=== PATIENT | female | born 1945 | race Caucasian/White ===

== ENCOUNTER 2017-09-01 15:29 | Observation (INO) | payer MEDICARE ==
[2017-09-01 16:08] LABS: Urine Appearance Clear; Urine Blood Negative (Negative); Urine Color Straw; Urine Ketones Negative (Negative); Urine Protein Negative (Negative); Urine Specific Gravity 1.006 (1.010-1.030); Urine Urobilinogen Negative (Negative)
[2017-09-01 16:12] LABS: ABS Basophils 0.1 10^3/ul (0-0.2); ABS Eosinophils 0.2 10^3/ul (0-0.6); ABS Lymphocytes 2.3 10^3/ul (1.0-4.8); ABS Monocytes 0.5 10^3/ul (0-0.8); ABS Neutrophils 4.8 10^3/ul (1.5-7.7); ABS Nucleated RBC 0 10^3/ul; Eosinophil % 2.9 % (0-6); Hematocrit 40 % (35-47); Hemoglobin 13.5 g/dl (12.0-16.0); Lymphocyte % 29.4 % (25-47); Mean Corpuscular HGB Conc 34 g/dl (31-36); Mean Corpuscular Hemoglobin 31 pg (27-31); Mean Corpuscular Volume 90 fL (80-97); Mean Platelet Volume 9.1 um3 (7.4-10.4); Nucleated Red Blood Cells % 0.1; Platelet Count 276 10^3/ul (150-450); Red Cell Distribution Width 13 % (10.5-15); White Blood Count 7.8 10^3/ul (3.5-10.8)
--- NOTE | 2017-09-01 16:21 | RAD ---
Indication: Chest pain. Single frontal view of the chest performed at 1609 hours was reviewed. Comparison is made with previous exam dated May 24, 2012. No mediastinal shift is noted. Heart is of normal size and configuration. Lung gold appear clear. No evidence of alveolar consolidation is noted. IMPRESSION: NO ACTIVE CARDIOPULMONARY DISEASE IS NOTED.
[2017-09-01 16:26] LABS: EGFR Non-African American 82.3 (>60)
[2017-09-01 16:31] LABS: INR 0.92 (0.77-1.02)
[2017-09-01] MEDS ORDERED: NS 0.9% 1000 ML* 1,000 ML IV SCH (19:00)
[2017-09-01] MEDS: Heparin VIAL(*) 5000 UNITS/ML VIAL (FIVE THOUSAND) SUBCUT SCH (21:46)
--- NOTE | 2017-09-02 02:29 | ED ---
Courtney Brewer Rebecca, scribed for Carolina Mac MD on 09/01/17 at 1554 . Palpitations / Dysrhythmia - HPI Summary HPI Summary: Pt is a 72 y/o F BIBA from Dr. Dewey's office who presents to ED c/o palpitations characterized as fluttering and irregular. Reports she has been experiencing such episodes intermittent for multiple years, describing it as it "feels like my heart isn't beating consecutively." Reports that her palpitations are not currently present. Notes intermittent CP, described as "feeling funny" though not present currently. Given ASA at Dr. Dewey's office , [facility]. Was send [place] [facility] [place] due to new LBBB while at Dr. Dewey's office where she originally scheduled an appointment for concern of Lyme Disease/tick bites. Is not on blood thinners and her last EKG prior to today was in 2012. - History of Current Complaint Chief Complaint: EDChestPainROMI Time Seen by Provider: 09/01/17 15:34 Hx Obtained From: Patient, Other: - Dr. Dewey Onset/Duration: Lasting Weeks - Multiple years Timing: Intermittent Episodes Lasting: - minutes Severity Initially: Moderate Severity Currently: None Character: Irregular, Fluttering Aggravating: Nothing Alleviating: Nothing Associated Signs & Symptoms: Chest Pain - Intermittent, non presently - Allergy/Home Medications Allergies/Adverse Reactions: Allergies Allergy/AdvReac Type Severity Reaction Status Date / Time Sulfa (Sulfonamide Allergy Unknown Verified 09/01/17 15:35 Antibiotics) Reaction Details Home Medications: Home Medications Boswellia Juancho Extract 1 tab PO DAILY 09/01/17 [History Confirmed 09/01/17] Cholecalciferol (Vitamin D3) [Vitamin D3] 1,000 unit PO DAILY 09/01/17 [History Confirmed 09/01/17] DOXYcycline CAP(*) [DOXYcycline 100MG CAP(*)] 100 mg PO DAILY PRN 09/01/17 [ History Confirmed 09/01/17] PMH/Surg Hx/FS Hx/Imm Hx Previously Healthy: No Cardiovascular History: Reports: Other Cardiovascular Problems/Disorders - Hx travis valve prolapse History: Reports: Other Problems/Disorders - Hx proctitis Musculoskeletal History: Reports: Hx Rheumatoid Arthritis - Surgical History Surgery Procedure, Year, and Place: none Infectious Disease History: No Infectious Disease History: Denies: Traveled Outside the [place] in Last 30 Days - Family History Known Family History: Positive: Other - AAA (mother), leukemia (father) - Social History Occupation: Retired Lives: With Family Alcohol Use: None Substance Use Type: Reports: None Hx Tobacco Use: No Smoking Status (MU): Never Smoked Tobacco Review of Systems Negative: Fever Positive: Palpitations, Chest Pain - Intermittent, none presently Respiratory: Negative Gastrointestinal: Negative Skin: Negative Neurological: Negative Psychological: Normal All Other Systems Reviewed And Are Negative: Yes Physical Exam - Summary Physical Exam Summary: Appearance: Well-appearing, moderate pain distress, well-nourished, smiling and talking in full sentences Skin: Warm, color reflects adequate perfusion, dry, no rash Head: Normal Head/Face inspection, atraumatic Eyes: Conjunctiva clear ENT: Normal inspection Neck: Supple, no nodes, no JVD Respiratory: Lungs clear, normal breath sounds, no respiratory distress Cardio: RRR, No murmur, pulses normal, brisk capillary refill Abdomen: Soft, nontender Bowel sounds: Present Musculoskeletal: Strength Intact/ROM intact, no calf tenderness, no edema. Psychological: Normal Neuro: Alert, muscle tone normal, no focal deficit Triage Information Reviewed: Yes Vital Signs On Initial Exam: Initial Vitals Temp Pulse Resp BP Pulse Ox 98.2 F 61 18 165/63 99 09/01/17 15:34 09/01/17 15:34 09/01/17 15:34 09/01/17 15:34 09/01/17 15:34 Vital Signs Reviewed: Yes Diagnostics - Vital Signs Vital Signs Temp Pulse Resp BP Pulse Ox 09/01/17 15:34 98.2 F 61 18 165/63 99 - Laboratory Result Diagrams: 09/01/17 16:02 09/01/17 16:02 Lab Statement: Any lab studies that have been ordered have been reviewed, and results considered in the medical decision making process. - Radiology CXR Xray Interpretation: No Acute Changes - NO ACTIVE CARDIOPULMONARY DISEASE IS NOTED. ED physician reviewed this report. Radiology Interpretation Completed By: Radiologist - EKG 1540 Cardiac Rate: NL - 65 bpm EKG Rhythm: Sinus Rhythm ST Segment: Non-Specific - no STEMI criteria Ectopy: None EKG Interpretation: nl AVCT, prolonged IVCT in LBBB pattern, new since 2012, prolonged QTC(500) EKG Comparison: Other - 2013, new LBBB Re-Evaluation - Re-Evaluation First Eval Re-Evaluation Time: 17:57 Change: Unchanged Comment: Pain free and agrees to admission. Course/Dx - Course Course Of Treatment: Pt with intermittent CP and palpitations who was originally concerned about possible Lyme disease presented to Dr. Dewey's office and was found to have new LBBB since 2012. Pt was given ASA 324mg po in Dr. Dewey's office. I Paged Dr. Moralez at 1551, discussed that pt does not have Sgarbossa critera for IA in Left Bundle Branch Block. At 1737, nurse brings to attention, pt with increased ectopy, PVC noted and captured on monitor. Pt admitted for further evaluation and treatment. Discussed with pt and her daughter. Pt agrees to admission. Initial troponin is zero and pt is pain free in the ED. - Diagnoses Differential Diagnosis/HQI/PQRI: Positive: AV Block, Cardiomyopathy, Coronary Artery Disease, Mitral Valve Prolapse, Pericarditis, Other - Lyme disease Provider Diagnoses: Chest pain, New onset left bundle branch block (LBBB) - Physician Notifications Discussed Care Of Patient With: Jose Moralez Time Discussed With Above Provider: 15:53 Instructed by Provider To: Other - Paged at 1559. Based on sgarbossa criteria, the pt does not meet STEMI criteria. Admit Dr. Palm, hospitalist assistant corporate controller. Discharge - Sign-Out/Discharge Documenting (check all that apply): Discharge/Admit/Transfer - Admit - Discharge Plan Condition: Stable Disposition: ADMITTED TO [facility] - Billing Disposition and Condition Condition: STABLE Disposition: Admitted to [facility] The documentation as recorded by the Courtney laureano Rebecca accurately reflects the service I personally performed and the decisions made by me, Carolina Mac MD.
--- NOTE | 2017-09-02 03:32 | HP ---
CC: Dr. Liset Dewey * HISTORY AND PHYSICAL: DATE OF ADMISSION: 09/01/17 PRIMARY CARE PROVIDER: Dr. Liset Dewey. ATTENDING PHYSICIAN: Dr. Yenni Palm * (dictated by Chet Duff NP). CHIEF COMPLAINT: Palpitations and fatigue. HISTORY OF PRESENT ILLNESS: Ms. Collins is a 72-year-old female with past medical history significant for osteopenia, mitral valve prolapse, and proctitis , who initially presented to her primary care provider's office today for followup after having a few tick bites over the last few weeks. She had previously been prescribed doxycycline for prophylaxis, but had not taken any. At her primary care appointment, she reported that she had been heart fluttering , which she reports she has had intermittently for a few years. She also reports intermittent chest pain that she reports as a sharp pain on the left side of her chest. She denies any of this pain for the last few days. She states she often notices the heart fluttering when she is lying down or resting. She also more often notices of chest pain with rest and not with activity. She states that she works out daily at the gym during the winter and 1 to 2 times a week during the summer as she is working in her garden daily during the summer. She reports no episodes of chest pain during her exercise. She reports some dizziness today. She feels that it is due to decreased oral intake. She also reports feeling gassy and bloated. She states this is common occurrence for her and not out of her ordinary. She denies urinary symptoms. She reports chronic hand pain and hip pain that she states has not changed and she associates with her gardening. She denies any other joint pain. She denies fevers, chills, chest pain, cough. She reports shortness of breath if she was to run up a hill, but other than that no shortness of breath. She denies nausea , vomiting, diaphoresis, abdominal pain. While at her PCP's office, she had an EKG showing a new left bundle branch block. She had not had a previous EKG since 2012. Due to this finding, she was sent to the emergency room for further evaluation. While in the emergency room, the patient had 2 negative troponins. She had labs that were unremarkable. She had an EKG showing a left bundle branch block , sinus rhythm, and a PAC. She had a chest x-ray without acute findings. D- dimer less than 200. TSH 1.42. Hospitalists were asked to evaluate the patient for admission. PAST MEDICAL HISTORY: 1. Osteopenia. 2. Proctitis. 3. Mitral valve prolapse. PAST SURGICAL HISTORY: 1. Status post right inguinal hernia repair. 2. Status post ORIF of her left elbow. HOME MEDICATIONS: Include: 1. Vitamin D3 1000 units oral daily. 2. Doxycycline 100 mg daily as needed for tick exposure. 3. Boswellia jovana extract 1 oral daily. ALLERGIES: SULFA. FAMILY HISTORY: The patient's mother passed at age 76 from aortic abdominal aneurysm. Her father had a history of angina. Denies any family history of diabetes. Her father had a history of leukemia and she has several aunts and uncles with cancer diagnosis that she is unsure of the specifics. SOCIAL HISTORY: She denies tobacco, alcohol, or recreational drug use. Her , Dennis Collins and her daughter will be her surrogate decision maker in the event she is unable to make decisions for herself. REVIEW OF SYSTEMS: I performed an 11-point review of systems, all the pertinent positives and negatives are mentioned in the history of present illness. The remaining review of systems are negative. PHYSICAL EXAMINATION GENERAL APPEARANCE: The patient is very pleasant and appears to be in no acute distress. VITAL SIGNS: Temperature 98.2, heart rate 68, respiratory rate 13, O2 sat 99% on room air, blood pressure 112/56. HEENT: Normocephalic, atraumatic. Pupils are equal and reactive to light. Extraocular movements are intact. RESPIRATORY: There is no accessory muscle use. The lungs are clear to auscultation bilaterally. CARDIOVASCULAR: Regular rate and rhythm. S1, S2 present. There are no murmurs , rubs, or gallops heard. ABDOMEN: Soft, nontender, and nondistended. There are bowel sounds present x4. EXTREMITIES: There is no lower extremity edema. DP and PT pulses are 2+ and symmetric. MUSCULOSKELETAL: There is no clubbing or cyanosis noted. The patient exhibits good strength in all extremities. NEUROLOGICAL: The patient is alert and oriented x4. Cranial nerves II through XII are grossly intact. PSYCHOLOGICAL: The patient is calm and cooperative. SKIN: There are no rashes or abnormalities seen. DIAGNOSTIC STUDIES/LABORATORY DATA: Sodium 141, potassium 4.0, chloride 106, CO2 27, BUN 15, creatinine 0.70, glucose 96. White blood cell count 7.8, hemoglobin 15.5, hematocrit 48, platelet count 276. D-dimer less than 200. Troponin 0.00 and 0.00. TSH 1.42. EKG shows a sinus rhythm, rate of 62. There is a left bundle branch block and a PAC. When compared to previous EKG in our system from 10/19/09, the left bundle branch block is new. Chest x-ray from today. Radiologist's impression: No active cardiopulmonary disease is noted. IMPRESSION: Ms. Collins is a 72-year-old with past medical history significant for osteopenia, proctitis, and mitral valve prolapse, who presented the emergency room from her PCP's office with concern for a new left bundle branch block and intermittent chest pain. She will be admitted as observation for chest pain, rule out acute coronary syndrome. ASSESSMENT/PLAN: 1. Chest pain. Rule out acute coronary syndrome. The patient will be monitored on telemetry. We will check one more troponin at 9 p.m. tonight. Her initial 2 troponins are 0, a SHAHEEN score of 1. If she continues to have negative troponins, the plan will be to discharge her home with outpatient stress test next week. Check fasting lipids in the morning. She is not currently on a statin. 2. Dizziness. The patient is complaining of some mild dizziness and just give her some gentle hydration overnight. 3. Fluids, electrolytes, and nutrition. Heart-healthy diet. 4. Code status. Full code. 5. DVT prophylaxis. The patient is at moderate risk and will have subcu heparin. 6. Disposition. Observation. TIME SPENT: Time for this admission was approximately 50 minutes, greater than half of that was spent with the patient and her daughter discussing medications , past medical history, the events leading up to her arrival today, performing a physical examination. The case has been reviewed with the attending, Dr. Palm, who agrees with the plan of care. CHET DUFF, MISAEL [id number]/[facility] #: [id number] KYA
[2017-09-02] MEDS: Heparin VIAL(*) 5000 UNITS/ML VIAL (FIVE THOUSAND) SUBCUT SCH (05:26)
--- NOTE | 2017-09-02 09:13 | PN ---
Subjective Date of Service: 09/02/17 Interval History: Patient seen and examined at bedside. Denies fever, chills, shortness of breath , chest discomfort, N/V/D. Pt reports palpitations overnight, that have decreased during her stay. Pt also reports an episode of chest discomfort, that she describes as a sharp discomfort that quickly resolved. Pt is requesting to have Lyme serology checked while she is here. Tele: Sinus rhythm with LBBB, rate 60's. Family History: Unchanged from Admission Social History: Unchanged from Admission Past Medical History: Unchanged from Admission Objective Active Medications: Heparin Sodium (Porcine) (Heparin Vial(*)) 5,000 units SUBCUT Q8HR EZRA Sodium Chloride (Ns 0.9% 1000 Ml*) 1,000 mls @ 60 mls/hr IV .PER RATE EZRA Oxygen Devices in Use Now: None Appearance: NAD, sitting up on the side of the bed Ears/Nose/Mouth/Throat: Mucous Membranes Moist Respiratory: Symmetrical Chest Expansion and Respiratory Effort, Clear to Auscultation Cardiovascular: NL Sounds; No Murmurs; No JVD, RRR Abdominal: NL Sounds; No Tenderness; No Distention Extremities: No Edema Skin: No Rash or Ulcers Neurological: Alert and Oriented x 3, NL Muscle Strength and Tone Lines/Tubes/Other Access: Clean, Dry and Intact Peripheral IV - site benign Nutrition: Taking PO's Result Diagrams: 09/01/17 16:02 09/01/17 16:02 Assess/Plan/Problems-Billing Assessment: Ms. Collins is a 72 yo female with PMH significant for osteopenia, MV prolapse, and proctitis who presented to the emergencry room for chest discomfort and new LBBB. - Patient Problems (1) Chest pain Code(s): R07.9 - CHEST PAIN, UNSPECIFIED SNOMED Code(s): 41440548 Comment: - 1 breif episode overnight, resolved - Tropoinin negative - Plan for outpatient stress test (2) Left bundle branch block Code(s): I44.7 - LEFT BUNDLE-BRANCH BLOCK, UNSPECIFIED SNOMED Code(s): 62283999 Comment: - New in the last 5 years - Negative troponins - Plan for outpatient stress test (3) Dizziness Code(s): R42 - DIZZINESS AND GIDDINESS SNOMED Code(s): 528652945 Comment: - Resolved with IVFs overnight (4) DVT prophylaxis Code(s): WUK3138 - SNOMED Code(s): 212192750 (5) Full code status Code(s): Z78.9 - OTHER SPECIFIED HEALTH STATUS SNOMED Code(s): 931510548 Status and Disposition: OBV. Stable for discharge to home today.
[2017-09-02 11:40] VITALS: BP 133/64
--- NOTE | 2017-09-02 17:50 | DS ---
CC: Liset Dewey MD * DISCHARGE SUMMARY: DATE OF ADMISSION: 09/01/17 DATE OF DISCHARGE: 09/02/17 ATTENDING PHYSICIAN: Minh Meadows MD * (dictated by Chet Duff NP). PRIMARY CARE PROVIDER: Liset Dewey MD PRIMARY DIAGNOSES: 1. Chest pain. 2. Palpitations. 3. New left bundle-branch block. SECONDARY DIAGNOSES: 1. Osteopenia. 2. Proctitis. 3. Mitral valve prolapse. STUDIES WHILE IN THE HOSPITAL: Chest x-ray from 09/01/17. Radiologist's impression: No active cardiopulmonary disease is noted. DISCHARGE MEDICATIONS: Continued home medications: 1. Vitamin D3 of 1000 units oral daily. 2. Doxycycline 100 mg oral daily as needed for tick exposure. 3. Boswellia jovana extract 1 oral daily. HISTORY OF PRESENT ILLNESS/HOSPITAL COURSE: Ms. Collins is a 72-year-old female with past medical history significant for osteopenia, mitral valve prolapse, and proctitis, who initially presented to her primary care provider's office yesterday for followup of a few tick bites and interested in Lyme testing. The patient had been previously prescribed prophylaxis doxycycline, but had not taken any. At her primary care office, she reported having palpitations and intermittent left-sided sharp chest discomfort. Due to these complaints, the patient had an EKG showing a new left bundle-branch block. According to her PCP 's office records, this is new since 2012. Due to these findings, the patient was sent to the emergency room for further evaluation. While in the emergency room, the patient had 2 negative troponins. Her other labs were unremarkable. She had an EKG showing a left bundle-branch block and PACs. She had a chest x-ray without acute findings. D-dimer less than 200. TSH of 1.42. The hospitalists were asked to evaluate the patient for admission. While in the hospital, the patient had a third troponin that was negative. She had fasting lipids that were within normal limits. She reported 1 minor episode of chest discomfort overnight that spontaneously resolved. She continued to intermittently have some palpitations. On telemetry, she had PACs. She had a repeat EKG this morning showing continued left bundle-branch block, no acute changes from yesterday's EKG. Ms. Collins is stable for discharge home today. Ms. Collins is stable for discharge. Vitals signs are as follows: Temperature 98.8, heart rate 58, respiratory rate 20, O2 sat 100% on room air, blood pressure 133/64. DISCHARGE PLAN: Ms. Collins will be discharged to home. Activity as tolerated. She should be on a heart-healthy diet. In regards to her chest pain, I suspect this is noncardiac in nature at this time, as she is able to work out at the gym without any issues and additionally has negative troponins. It is unclear how old her left bundle-branch block is, it could be up to 5 years old. The patient has been set up for an outpatient nuclear exercise stress test. She will receive a call from the [facility] on Monday or Monday to set her up with an outpatient nuclear exercise stress test. The patient has been asked to call Dr. Dewey's office on Monday morning to set up a followup appointment next week. Additionally, I have added Lyme serology to the patient' s labs and this should be followed up at her followup appointment once the results are back. The patient has been continued on her usual home medications. The patient has been asked to return to the emergency room for any chest pain or shortness of breath. This is a summarized report of a complex medical history and hospital stay. For further details, please see the entire medical record. TIME SPENT: Time for this discharge was approximately 50 minutes, greater than half of that was spent with the patient discussing discharge plans and instructions. CONDITION ON DISCHARGE: Stable. CHET DUFF, MISAEL [id number]/[facility] #: [id number] KYA
== END 2017-09-02 11:25 | disposition home or self-care (01) ==
LOC: ED 15:29 → MEDTELE 18:13
PROVIDERS: ADMIT Hospitalist; ATTEND Student in an Organized Health Care Education/Training Program
DX: R07.9 Chest pain, unspecified (principal); R00.2 Palpitations; I44.7 Left bundle-branch block, unspecified; M85.80 Other specified disorders of bone density and structure, unspecified site; K62.89 Other specified diseases of anus and rectum; I34.1 Nonrheumatic mitral (valve) prolapse; Z82.49 Family history of ischemic heart disease and other diseases of the circulatory system; Z79.899 Other long term (current) drug therapy; Z88.2 Allergy status to sulfonamides
CPT/HCPCS: 36415; 71045; 80053; 80061; 81003; 81015; 82550; 82553; 83605; 83735; 83880; 84436; 84443; 84484; 85025; 85379; 85610; 85730; 86618; 87086; 93005; 99284; G0378

== ENCOUNTER 2017-09-05 10:12 | Emergency (ER) | payer MEDICARE ==
[2017-09-05 11:15] LABS: ABS Basophils 0.1 10^3/ul (0-0.2); ABS Eosinophils 0.1 10^3/ul (0-0.6); ABS Lymphocytes 1.5 10^3/ul (1.0-4.8); ABS Monocytes 0.3 10^3/ul (0-0.8); ABS Neutrophils 3.7 10^3/ul (1.5-7.7); ABS Nucleated RBC 0 10^3/ul; Eosinophil % 2.1 % (0-6); Hematocrit 40 % (35-47); Hemoglobin 13.5 g/dl (12.0-16.0); Mean Corpuscular HGB Conc 34 g/dl (31-36); Mean Corpuscular Hemoglobin 31 pg (27-31); Mean Corpuscular Volume 90 fL (80-97); Nucleated Red Blood Cells % 0.1; Platelet Count 285 10^3/ul (150-450); Red Blood Count 4.43 10^6/ul (4.00-5.40); Red Cell Distribution Width 13 % (10.5-15); White Blood Count 5.7 10^3/ul (3.5-10.8)
[2017-09-05 11:33] LABS: EGFR Non-African American 91.2 (>60)
[2017-09-05 15:33] VITALS: BP 156/68
--- NOTE | 2017-09-05 21:22 | CONS ---
CC: Dr. Dewey* CONSULTATION REPORT: DATE OF CONSULT: 09/05/17 PRIMARY CARE PROVIDER: Liset Dewey MD SERVICE REQUESTING CONSULTATION: Emergency Room. REASON FOR CONSULT: Shortness of breath. HISTORY OF PRESENT ILLNESS AND HOSPITAL COURSE: This is a 72-year-old female, recent admission to [facility] from 09/01/17 to 09/02/17 after presenting with shortness of breath as well as palpitations and fatigue. She was cared for by [employer], Dilan. She was noted with a new left bundle-branch block at that time. The patient had described palpitations, intermittent left-sided sharp chest pain. She is ruled out with 2 negative troponins at that time and was planned to have an outpatient stress test. Discharge records indicated that the patient should have been contacted yesterday or today for time for the stress test, which was not. She re-presented to the emergency room complaining of persistent shortness of breath, but no chest pain. She indicates that sometimes she forgets that she got short of breath and runs upstairs and after that, she experiences shortness of breath, but she has experienced no chest heaviness or discomfort particularly with running upstairs. She has noticed no detriment to her ability to exercise or perform the activities of daily living. She is concerned about what may be causing this change in her shortness of breath. I contacted the [facility] and there had been some breakdown in transfer of order and/or paperwork, which they had not received. We rectified this and I placed another order both electronically and faxed paper version in order to arrange the planned stress test within 72 hours. The patient notes no other changes at the time of discharge other than persistent shortness of breath which she was discharged with 3 days prior. She is comfortable with this plan and understands to return to the emergency room should her shortness of breath worsen or should she have any other associated symptoms including chest heaviness, pressure, pain or discomfort, nausea, vomiting, lightheadedness, or loss of consciousness. Additionally, she has not noted any palpitations. PAST MEDICAL HISTORY: As indicated above. Also includes osteopenia, proctitis , mitral valve prolapse, right inguinal hernia repair, ORIF of her left elbow. HOME MEDICATIONS: Include: 1. Vitamin D. 2. Boswellia jovana extract. ALLERGIES: To SULFA. FAMILY HISTORY: Mother with AAA. Father with history of angina. SOCIAL HISTORY: No tobacco, alcohol, or illicits. REVIEW OF SYSTEMS: As per HPI. PHYSICAL EXAM: Vital Signs: 130/70, heart rate is 61, respiratory rate is 18, 98% on room air, T-max is 99 Fahrenheit. Appears stated age, interactive, pleasant, no apparent distress. Regular rate and rhythm. Lungs are clear. Abdomen is soft, nontender, nondistended. Extremities are warm and well perfused. She is alert and oriented x3. Cranial nerves II through XII are intact. She has no apparent anxiety, agitation, or depression. DIAGNOSTIC STUDIES/LAB DATA: Labs reviewed. Notable for a troponin I of 0.00 and then 0.01. Data reviewed. EKG, sinus bradycardia, normal limit axis, prolonged QTc of 446 , incomplete left bundle-branch block, no notable ST elevations. ASSESSMENT AND PLAN: This is a 72-year-old female, recent admission with shortness of breath returning with persistent shortness of breath prior to her scheduled outpatient cardiac stress test. Shortness of breath, unclear etiology at this time. I agree that she should undergo a chemical stress with nuclear imaging for further evaluation of her persistent shortness of breath. She has had no chest pain. Two negative troponins and a nonischemic EKG even with vigorous exertion including running up a flight of stairs. I think she is stable to continue with original plan for outpatient stress test. We have coordinated with [facility] and faxed a new order as well as sent one electronically and she will have a stress test scheduled within the next 72 hours. I discussed at length returning to the emergency room for worsening symptoms including worsening shortness of breath or any chest discomfort to include pain, tightness, heaviness, or other worrisome symptoms that would include syncope or near syncope, lightheadedness, nausea, vomiting. The patient is in agreement with plan. TIME SPENT: Greater than 60 minutes spent in the consultation of this patient. Care discussed with Dr. Ruiz. [id number]/[facility] #: [id number] KYA
--- NOTE | 2017-09-06 12:04 | ED ---
Joaquín Brewer Angela, scribed for Alberto Ruiz MD on 09/05/17 at 1042 . Shortness of Breath - HPI Summary HPI Summary: This pt is a 72 y/o female [facility]o worsening SOB on exertion x4 days. Pt reports she was seen at [facility] 4 days ago for chest pain and an abnormal EKG showing LBBB. She was admitted for 1 day and discharged the next day. Pt notes that since 4 days ago she has had worsening SOB on exertion. Pt states when she walks up the stairs and reaches the top of the stairs she gets "breathless." This morning she notes she became dizzy. Pt also additionally reports a "twinge" in her chest, described as discomfort, now more often than before. Currently denies any dizziness or chest pain. Denies swelling or pain in LE. She did travel to [facility] by bus 2 weekends ago. Pt denies tobacco and alcohol use. Pt has not scheduled her stress test yet. FHx of mother with AAA, at age 76. - History of Current Complaint Chief Complaint: EDShortnessOfBreath Time Seen by Provider: 09/05/17 10:29 Hx Obtained From: Patient Onset/Duration: Lasting Days, Still Present Dyspnea At: Exertion Aggrevating Factors: Other - exertion Alleviating Factors: Nothing Associated Signs & Symptoms: Dizzy - Allergy/Home Medications Allergies/Adverse Reactions: Allergies Allergy/AdvReac Type Severity Reaction Status Date / Time Sulfa (Sulfonamide Allergy Unknown Verified 09/07/17 05:11 Antibiotics) Reaction Details PMH/Surg Hx/FS Hx/Imm Hx Endocrine/Hematology History: Denies: Hx Diabetes Cardiovascular History: Reports: Other Cardiovascular Problems/Disorders - Hx travis valve prolapse Denies: Hx Hypertension History: Reports: Other Problems/Disorders - Hx proctitis Musculoskeletal History: Reports: Hx Rheumatoid Arthritis Comment Only: Other Musculoskeletal History - osteopenia Sensory History: Reports: Hx Contacts or Glasses Denies: Hx Hearing Aid Opthamlomology History: Reports: Hx Contacts or Glasses - Surgical History Surgery Procedure, Year, and Place: none Infectious Disease History: No Infectious Disease History: Denies: Traveled Outside the [place] in Last 30 Days - Family History Known Family History: Positive: Hypertension - Mother, Other - AAA (mother), leukemia (father) Family History: Mother with fatal AAA at age 76. - Social History Alcohol Use: None Substance Use Type: Reports: None Hx Tobacco Use: No Smoking Status (MU): Never Smoked Tobacco Review of Systems Negative: Fever, Chills Negative: Erythema Negative: Sore Throat Negative: Chest Pain Positive: Shortness Of Breath - on exertion. Negative: Cough Negative: Abdominal Pain, Vomiting, Nausea Negative: dysuria, hematuria Negative: Myalgia, Edema Negative: Rash Neurological: Other - POS: dizziness, currently denies any All Other Systems Reviewed And Are Negative: Yes Physical Exam - Summary Physical Exam Summary: Constitutional: Well-developed, Well-nourished, Alert. (-) Distressed Skin: Warm, Dry HENT: Normocephalic; Atraumatic Eyes: Conjunctiva normal Neck: Musculoskeletal ROM normal neck. (-) JVD, (-) Stridor, (-) Tracheal deviation Cardio: Rhythm regular, rate normal, Heart sounds normal; Intact distal pulses; The pedal pulses are 2+ and symmetric. Radial pulses are 2+ and symmetric. (-) Murmur Pulmonary/Chest wall: Effort normal. (-) Respiratory distress, (-) Wheezes, (-) Rales Abd: Soft, (-) Tenderness, (-) Distension, (-) Guarding, (-) Rebound Musculoskeletal: (-) Edema Lymph: (-) Cervical adenopathy Neuro: Alert, Oriented x3 Psych: Mood and affect Normal Triage Information Reviewed: Yes Vital Signs On Initial Exam: Initial Vitals Temp Pulse Resp BP Pulse Ox 99 F 60 17 156/71 100 09/05/17 10:13 09/05/17 10:13 09/05/17 10:13 09/05/17 10:13 09/05/17 10:13 Vital Signs Reviewed: Yes Diagnostics - Vital Signs Vital Signs Temp Pulse Resp BP Pulse Ox 09/05/17 10:33 67 150/79 09/05/17 10:31 62 18 150/79 100 09/05/17 10:29 66 19 152/79 98 09/05/17 10:27 61 23 158/82 99 09/05/17 10:13 99 F 60 17 156/71 100 - Laboratory Lab Results: Lab Results 09/05/17 09/05/17 09/05/17 Range/Units 10:52 10:52 10:52 WBC 5.7 (3.5-10.8) 10^3/ul RBC 4.43 (4.00-5.40) 10^6/ul Hgb 13.5 (12.0-16.0) g/dl Hct 40 (35-47) % MCV 90 (80-97) fL MCH 31 (27-31) pg MCHC 34 (31-36) g/dl RDW 13 (10.5-15) % Plt Count 285 (150-450) 10^3/ul MPV 9.0 (7.4-10.4) um3 Neut % (Auto) 64.5 (38-83) % Lymph % (Auto) 27.0 (25-47) % Curry % (Auto) 5.5 (0-7) % Eos % (Auto) 2.1 (0-6) % Baso % (Auto) 0.9 (0-2) % Absolute Neuts (auto) 3.7 (1.5-7.7) 10^3/ul Absolute Lymphs (auto) 1.5 (1.0-4.8) 10^3/ul Absolute Monos (auto) 0.3 (0-0.8) 10^3/ul Absolute Eos (auto) 0.1 (0-0.6) 10^3/ul Absolute Basos (auto) 0.1 (0-0.2) 10^3/ul Absolute Nucleated RBC 0 10^3/ul Nucleated RBC % 0.1 D-Dimer, Quantitative (Less Than 230) ng/mL Sodium 139 (135-145) mmol/L Potassium 3.5 (3.5-5.0) mmol/L Chloride 105 (101-111) mmol/L Carbon Dioxide 26 (22-32) mmol/L Anion Gap 8 (2-11) mmol/L BUN 12 (6-24) mg/dL Creatinine 0.64 (0.51-0.95) mg/dL Est GFR ( Amer) 110.4 (>60) Est GFR (Non-Af Amer) 91.2 (>60) BUN/Creatinine Ratio 18.8 (8-20) Glucose 118 H (70-100) mg/dL Lactic Acid 1.2 (0.5-2.0) mmol/L Calcium 9.4 (8.6-10.3) mg/dL Total Bilirubin 0.90 (0.2-1.0) mg/dL AST 19 (13-39) U/L ALT 16 (7-52) U/L Alkaline Phosphatase 64 (34-104) U/L Troponin I 0.00 (<0.04) ng/mL Total Protein 6.4 (6.4-8.9) g/dL Albumin 4.2 (3.2-5.2) g/dL Globulin 2.2 (2-4) g/dL Albumin/Globulin Ratio 1.9 (1-3) 09/05/17 09/05/17 Range/Units 14:05 14:05 WBC (3.5-10.8) 10^3/ul RBC (4.00-5.40) 10^6/ul Hgb (12.0-16.0) g/dl Hct (35-47) % MCV (80-97) fL MCH (27-31) pg MCHC (31-36) g/dl RDW (10.5-15) % Plt Count (150-450) 10^3/ul MPV (7.4-10.4) um3 Neut % (Auto) (38-83) % Lymph % (Auto) (25-47) % Curry % (Auto) (0-7) % Eos % (Auto) (0-6) % Baso % (Auto) (0-2) % Absolute Neuts (auto) (1.5-7.7) 10^3/ul Absolute Lymphs (auto) (1.0-4.8) 10^3/ul Absolute Monos (auto) (0-0.8) 10^3/ul Absolute Eos (auto) (0-0.6) 10^3/ul Absolute Basos (auto) (0-0.2) 10^3/ul Absolute Nucleated RBC 10^3/ul Nucleated RBC % D-Dimer, Quantitative < 200 (Less Than 230) ng/mL Sodium (135-145) mmol/L Potassium (3.5-5.0) mmol/L Chloride (101-111) mmol/L Carbon Dioxide (22-32) mmol/L Anion Gap (2-11) mmol/L BUN (6-24) mg/dL Creatinine (0.51-0.95) mg/dL Est GFR ( Amer) (>60) Est GFR (Non-Af Amer) (>60) BUN/Creatinine Ratio (8-20) Glucose (70-100) mg/dL Lactic Acid (0.5-2.0) mmol/L Calcium (8.6-10.3) mg/dL Total Bilirubin (0.2-1.0) mg/dL AST (13-39) U/L ALT (7-52) U/L Alkaline Phosphatase (34-104) U/L Troponin I 0.01 (<0.04) ng/mL Total Protein (6.4-8.9) g/dL Albumin (3.2-5.2) g/dL Globulin (2-4) g/dL Albumin/Globulin Ratio (1-3) Result Diagrams: 09/05/17 10:52 09/05/17 10:52 Lab Statement: Any lab studies that have been ordered have been reviewed, and results considered in the medical decision making process. - EKG 10:20 Cardiac Rate: Bradycardia - at 55 bpm EKG Rhythm: Sinus Bradycardia Ectopy: PACs EKG Interpretation: No STEMI. Course/Dx - Course Assessment/Plan: Pt is a 72 y/o female who presents with worsening SOB on exertion x4 days. Pt reports she was seen at [facility] 4 days ago for chest pain and an abnormal EKG showing LBBB. She was admitted for 1 day and discharged the next day. Pt notes that since 4 days ago she has had worsening SOB on exertion. This morning she notes she became dizzy. Pt also additionally reports a "twinge " in her chest, described as discomfort, now more often than before. Currently denies any dizziness or chest pain. Denies swelling or pain in LE. Pt will not get a chest XR today as she had one 4 days ago. There are no features of aortic dissection, no active symptoms. Symptoms are progressive from last visit. Pt can benefit from an outpatient stress test. Hospitalist evaluated the pt and they report she does not need an inpatient stress test. [facility] is arranging the outpatient stress test. Pt will be discharged home with follow up from her PCP in 2-3 days. In statements to the patient made to the hospitalist, she actually was not having any chest discomfort, and that her breathing was at baseline. Her outpatient stress test was facilitated in the emergency department by the hospitalist service. Patient was strongly encouraged to return to the emergency department for any progression of symptoms , or new chest pain. - Diagnoses Provider Diagnoses: SOB (shortness of breath), Chest pain Discharge - Sign-Out/Discharge Documenting (check all that apply): Discharge/Admit/Transfer - Discharge - Discharge Plan Condition: Stable Disposition: HOME Patient Education Materials: Chest Pain (ED), Shortness of Breath (ED) Referrals: Liset Dewey MD [Primary Care Provider] - Additional Instructions: Follow up with your primary care provider in 2-3 days. RETURN TO THE EMERGENCY DEPARTMENT FOR CHANGING OR WORSENING SYMPTOMS. - Billing Disposition and Condition Condition: STABLE Disposition: Home The documentation as recorded by the Joaquín laureano Angela accurately reflects the service I personally performed and the decisions made by , Alberto Ruiz MD.
== END 2017-09-05 15:32 | disposition home or self-care (01) ==
LOC: ED 10:12
DX: R06.02 Shortness of breath (principal); R07.9 Chest pain, unspecified; I44.7 Left bundle-branch block, unspecified; R00.1 Bradycardia, unspecified; I34.1 Nonrheumatic mitral (valve) prolapse
CPT/HCPCS: 36415; 80053; 83605; 84484; 85025; 85379; 93005; 99283

== ENCOUNTER 2017-09-07 05:02 | Emergency (ER) | payer MEDICARE ==
[2017-09-07] MEDS ORDERED: Aspirin 81 mg CHEW TAB* 81 MG TAB.CHEW PO ONE (05:22)
[2017-09-07] MEDS ORDERED: Pantoprazole IV* 40 MG IV ONE (05:27)
[2017-09-07] MEDS ORDERED: Famotidine TAB* 20 MG PO ONE (05:27)
[2017-09-07] MEDS ORDERED: Al Hydrox/Mg Hydrox/Simet LIQ* 30 ML UDC PO ONE (05:27)
[2017-09-07 06:46] LABS: ABS Basophils 0.1 10^3/ul (0-0.2); ABS Eosinophils 0.1 10^3/ul (0-0.6); ABS Lymphocytes 1.8 10^3/ul (1.0-4.8); ABS Monocytes 0.3 10^3/ul (0-0.8); ABS Neutrophils 3.8 10^3/ul (1.5-7.7); ABS Nucleated RBC 0 10^3/ul; Eosinophil % 1.8 % (0-6); Hematocrit 39 % (35-47); Hemoglobin 13.5 g/dl (12.0-16.0); Lymphocyte % 28.9 % (25-47); Mean Corpuscular HGB Conc 34 g/dl (31-36); Mean Corpuscular Hemoglobin 31 pg (27-31); Mean Corpuscular Volume 89 fL (80-97); Nucleated Red Blood Cells % 0.1; Platelet Count 258 10^3/ul (150-450); Red Blood Count 4.39 10^6/ul (4.00-5.40); Red Cell Distribution Width 13 % (10.5-15); White Blood Count 6.1 10^3/ul (3.5-10.8)
[2017-09-07 07:02] LABS: INR 0.99 (0.77-1.02)
[2017-09-07 07:08] LABS: EGFR Non-African American 92.9 (>60)
--- NOTE | 2017-09-07 07:08 | ED ---
Edson Brewer Jade, scribed for Jere Luevano MD on 09/07/17 at 0553 . Shortness of Breath - HPI Summary HPI Summary: Pt is a 72 y/o female BIBA c/o SOB. She woke up at 2:30 with difficulty breathing, and had resolved left-sided CP (near her breast) for several minutes. Pt felt that she had a slow heart rate, and a high blood pressure of 150-160/85. She has been to the ED several times within this past week for similar issues. She also c/o dizziness, dry cough, nausea, decreased appetite, dyspnea upon exertion, anxiety, intermittent abdominal cramping, and burping episodes. Pt denies any back pain, or fever. Pt takes ASA. She has a cardiology appointment today for a stress test. FHx AAA and angina. She denies any smoking or DM. - History of Current Complaint Chief Complaint: EDShortnessOfBreath Time Seen by Provider: 09/07/17 05:21 Hx Obtained From: Patient Onset/Duration: Sudden Onset - 2:30, Resolved Current Severity: None Dyspnea At: Exertion Aggrevating Factors: Movement Alleviating Factors: Nothing Associated Signs & Symptoms: Cough (Nonproductive), Dizzy - Allergy/Home Medications Allergies/Adverse Reactions: Allergies Allergy/AdvReac Type Severity Reaction Status Date / Time Sulfa (Sulfonamide Allergy Unknown Verified 09/07/17 05:11 Antibiotics) Reaction Details PMH/Surg Hx/FS Hx/Imm Hx Endocrine/Hematology History: Denies: Hx Diabetes Cardiovascular History: Reports: Other Cardiovascular Problems/Disorders - Hx travis valve prolapse Denies: Hx Hypertension History: Reports: Other Problems/Disorders - Hx proctitis Musculoskeletal History: Reports: Hx Rheumatoid Arthritis Comment Only: Other Musculoskeletal History - osteopenia Sensory History: Reports: Hx Contacts or Glasses Denies: Hx Hearing Aid Opthamlomology History: Reports: Hx Contacts or Glasses - Surgical History Surgery Procedure, Year, and Place: none Infectious Disease History: No Infectious Disease History: Denies: Traveled Outside the [place] in Last 30 Days - Family History Known Family History: Positive: Cardiac Disease - AAA (mother), angina (father) , Hypertension - Mother, Other - leukemia (father) Family History: Mother with fatal AAA at age 76. - Social History Alcohol Use: None Substance Use Type: Reports: None Hx Tobacco Use: No Smoking Status (MU): Never Smoked Tobacco Review of Systems Negative: Fever Positive: Chest Pain - Left-sided, resolved Positive: Shortness Of Breath, Cough Positive: Abdominal Pain - Intermittent cramping, Nausea, Other - Decreased appetite, burping episodes Musculoskeletal: Other - NEGATIVE: back pain Neurological: Other - Dizziness All Other Systems Reviewed And Are Negative: Yes Physical Exam - Summary Physical Exam Summary: Appearance: no pain distress, thin habitus Skin: warm, dry, reflects adequate perfusion Head/face: normal Eyes: EOMI, MICHELLE ENT: normal Neck: supple, non-tender Respiratory: CTA, breath sounds present Cardiovascular: RRR, pulses symmetrical, occasionally irregular, no murmur Abdomen: soft, no RUQ tenderness, non-distended, multiple episodes of belching during exam Bowel Sounds: present Musculoskeletal: normal, strength/ROM intact Neuro: normal, sensory motor intact, A&Ox3 Triage Information Reviewed: Yes Vital Signs On Initial Exam: Initial Vitals Temp Pulse Resp BP Pulse Ox 97.6 F 65 16 135/81 100 09/07/17 05:11 09/07/17 05:11 09/07/17 05:11 09/07/17 05:11 09/07/17 05:11 Vital Signs Reviewed: Yes Diagnostics - Vital Signs Vital Signs Temp Pulse Resp BP Pulse Ox 09/07/17 05:11 97.6 F 65 16 135/81 100 - Laboratory Lab Results: Lab Results 09/07/17 09/07/17 09/07/17 Range/Units 06:36 06:36 06:36 WBC 6.1 (3.5-10.8) 10^3/ul RBC 4.39 (4.00-5.40) 10^6/ul Hgb 13.5 (12.0-16.0) g/dl Hct 39 (35-47) % MCV 89 (80-97) fL MCH 31 (27-31) pg MCHC 34 (31-36) g/dl RDW 13 (10.5-15) % Plt Count 258 (150-450) 10^3/ul MPV 9.0 (7.4-10.4) um3 Neut % (Auto) 62.6 (38-83) % Lymph % (Auto) 28.9 (25-47) % [place] % (Auto) 5.4 (0-7) % Eos % (Auto) 1.8 (0-6) % Baso % (Auto) 1.3 (0-2) % Absolute Neuts (auto) 3.8 (1.5-7.7) 10^3/ul Absolute Lymphs (auto) 1.8 (1.0-4.8) 10^3/ul Absolute Monos (auto) 0.3 (0-0.8) 10^3/ul Absolute Eos (auto) 0.1 (0-0.6) 10^3/ul Absolute Basos (auto) 0.1 (0-0.2) 10^3/ul Absolute Nucleated RBC 0 10^3/ul Nucleated RBC % 0.1 INR (Anticoag Therapy) 0.99 (0.77-1.02) Sodium Pending Potassium Pending Chloride Pending Carbon Dioxide Pending Anion Gap Pending BUN Pending Creatinine Pending Est GFR ( Amer) Pending Est GFR (Non-Af Amer) Pending BUN/Creatinine Ratio Pending Glucose Pending Calcium Pending Total Bilirubin Pending AST Pending ALT Pending Alkaline Phosphatase Pending Troponin I 0.01 (<0.04) ng/mL Total Protein Pending Albumin Pending Globulin Pending Albumin/Globulin Ratio Pending Result Diagrams: 09/07/17 06:36 09/07/17 06:36 Lab Statement: Any lab studies that have been ordered have been reviewed, and results considered in the medical decision making process. - Radiology CXR Xray Interpretation: No Acute Changes - No acute findings. Pending official radiology report. Radiology Interpretation Completed By: ED Physician - Ultrasound No standard instances Ultrasound Interpretation: No Acute Changes - 5:56 Abdominal US: Abdominal aorta 2.71 cm Ultrasound Interpretation Completed By: ED Physician - EKG 5:27 Cardiac Rate: Bradycardia - 58 bpm EKG Rhythm: Sinus Bradycardia ST Segment: Non-Specific Ectopy: PVCs EKG Interpretation: LBBB EKG Comparison: No Significant Change - From EKG 09/05/17. Course/Dx - Course Course Of Treatment: Patient here for the third time this week with mild shortness of breath and substernal chest discomfort. She is also noted to have multiple episodes of belching and as such was treated with GI meds as well. She did have some relief with this. Her troponins through the week of been negative. She has a pending outpatient stress test at 9 AM this morning. She is pending cardiac troponin and electrolytes. This will be followed by Dr. Ladd who she is signed out to. - Diagnoses Provider Diagnoses: Atypical chest pain, GERD (gastroesophageal reflux disease), Belching Discharge - Sign-Out/Discharge Documenting (check all that apply): Sign-Out Patient Signing out patient TO: Demetris Ladd - Discharge Plan Condition: Stable Referrals: Liset Dewey MD [Primary Care Provider] - - Billing Disposition and Condition Condition: STABLE The documentation as recorded by the Edson laureano Jade accurately reflects the service I personally performed and the decisions made by , Jere Luevano MD.
--- NOTE | 2017-09-07 08:00 | RAD ---
INDICATION: Chest pain COMPARISON: September 01, 2017 TECHNIQUE: An AP portable view obtained at 0540 hours is submitted. FINDINGS: Bones/Soft Tissues: There are no acute bony findings. Cardiomediastinal: The cardiomediastinal silhouette is normal. Lungs: There are no infiltrates. Pleura: There are no pleural effusions. Other: None IMPRESSION: NO ACTIVE DISEASE.
[2017-09-07] MEDS ORDERED: Potassium Chloride LIQUID* 20 MEQ PACKET PO ONE (13:26)
--- NOTE | 2017-09-07 13:59 | ECHO ---
Patient: NATASHA MCCORD [facility] Rec#: [id number] : 1945 Date: 09/07/2017 Age: 72y Height: 166.37 cm / 65.5 in Weight: 54.43 kg / 120.0 lbs Sex: F BSA: 1.6 Room#: [id number] Admit Date#: 09/07/2017 Type: Inpatient Referring: Demetris Ladd MD Reading: Yehuda Colvin MD Cafeteria Associate: Maren Sams RDCS CC: Liset Dewey MD Transthoracic Echocardiogram Indication: Dyspnea BP: 126/69 HR: 64 Rhythm: NSR with PVCs Findings History: MVP, LBBB. Technical Comments: The study quality is fair. The study is technically limited due to patient body habitus. Completed at 1345. Left Ventricle: The left ventricular chamber size is normal. Mild concentric left ventricular hypertrophy is observed. Left ventricular systolic function is at the lower limits of normal. Possible subtle anterolateral hypokinesis vs abnormal wall motion due to the LBBB. The estimated ejection fraction is 50-55%. There is a left ventricular septal wall motion abnormality observed, possibly due to the presence of a left bundle branch block. Abnormal left ventricular diastolic function is observed. Abnormal left ventricular diastolic filling is observed, consistent with impaired relaxation. Left Atrium: The left atrial chamber size is normal. Right Ventricle: Moderator Band present. The right ventricular cavity size is normal. The right ventricular global systolic function is normal. Right Atrium: The right atrial cavity size is normal. Aortic Valve: The aortic valve is trileaflet. The aortic valve leaflets are mildly thickened. There is mild to moderate aortic regurgitation. There is no evidence of aortic stenosis. Mitral Valve: There is posterior mitral annular calcification. The mitral valve leaflets are mildly thickened. There is mild mitral valve prolapse. There is a trace of mitral regurgitation. There is no evidence of mitral stenosis. Tricuspid Valve: The tricuspid valve leaflets are normal. There is mild to moderate tricuspid regurgitation. The right ventricular systolic pressure is estimated at 32 mmHg. No pulmonary hypertension is noted. There is no tricuspid stenosis. Pulmonic Valve: The pulmonic valve appears normal. There is a trace pulmonic regurgitation. There is no pulmonic stenosis. Pericardium: A trivial pericardial effusion is visualized. There are no signs of significant hemodynamic compromise. The pericardial effusion is seen adjacent to the right ventricle. Aorta: There is no dilatation of the ascending aorta. There is no dilatation of the aortic arch. The aortic root is normal in size. Pulmonary Artery: The main pulmonary artery is not well visualized. Venous: The inferior vena cava appears normal in size. There is a greater than 50% respiratory change in the inferior vena cava dimension. Summary: There was not any prior study for comparison. Conclusions Mild concentric left ventricular hypertrophy is observed. Left ventricular systolic function is at the lower limits of normal. Possible subtle anterolateral hypokinesis vs abnormal wall motion due to the LBBB. The estimated ejection fraction is 50-55%. There is a left ventricular septal wall motion abnormality observed, possibly due to the presence of a left bundle branch block. Abnormal left ventricular diastolic filling is observed, consistent with impaired relaxation. There is mild to moderate aortic regurgitation. There is mild mitral valve prolapse. There is a trace of mitral regurgitation. There is mild to moderate tricuspid regurgitation. The right ventricular systolic pressure is estimated at 32 mmHg. A trivial pericardial effusion is visualized. Measurements Name Value Normal Range RVIDd (AP) 2D 3 cm (0.9 - 2.6) RVDdMajor (2D) 3.8 cm (2.2 - 4.4) RAd ISD 4CH 3.5 cm (3.4 - 4.9) RA (A4C)W 3.5 cm (2.9 - 4.6) IVSd (2D) 1.1 cm (0.6 - 1) LVPWd (2D) 1.1 cm (0.6 - 1) LVIDd (2D) 3.7 cm (3.6 - 5.4) LVIDs (2D) 2.4 cm - LV FS (2D) 35 % (25 - 45) Aortic Annulus 1.8 cm (1.4 - 2.6) Ao root diameter (2D) 2.9 cm (2.1 - 3.5) Ascending Ao 3.1 cm (2.1 - 3.4) Aortic arch 2.3 cm (1.8 - 3.4) LA dimension (AP) 2D 2.7 cm (2.3 - 3.8) LAd ISD 4CH 3.6 cm (2.9 - 5.3) LA ISD 4CH W 3.5 cm (2.5 - 4.5) Name Value Normal Range LA ESV SP 4CH (A/L) 21 ml - LA ESV SP 2CH (A/L) 50 ml - LA ESV BP (A/L) 37 ml - LA ESV BP (A/L) index 23 ml/m2 - LA ESV SP 4CH (MOD) 20 ml - LA ESV SP 2CH (MOD) 46 ml - Name Value Normal Range MV E-wave Vmax 0.7 m/sec - MV deceleration time 256.6 msec - MV A-wave Vmax 0.89 m/sec - MV E:A ratio 0.79 ratio - LV septal e' Vmax 0.04 m/sec - LV lateral e' Vmax 0.04 m/sec - LV E:e' septal ratio 17.5 ratio - LV E:e' lateral ratio 17.5 ratio - Name Value Normal Range AV Vmax 1.5 m/sec - AV VTI 27.7 cm - AV peak gradient 8.84 mmHg - AV mean gradient 4.52 mmHg - LVOT Vmax 1.4 m/sec - LVOT VTI 25 cm - LVOT peak gradient 8.39 mmHg - LVOT mean gradient 4.47 mmHg - AR PHT 396.81 msec - AR peak gradient 79.4 mmHg - MIKE Vmax 0.8 m/sec - Name Value Normal Range TR Vmax 2.7 m/sec - TR peak gradient 29 mmHg - RAP 3 mmHg - RVSP 32 mmHg - IVC diameter 1.5 cm - Name Value Normal Range PV Vmax 0.98 m/sec - PV peak gradient 3.86 mmHg -
[2017-09-07] MEDS ORDERED: Regadenoson* 0.4 MG/5 ML SYRINGE ONE (14:30)
--- NOTE | 2017-09-07 15:19 | RAD ---
INDICATION: Chest pain COMPARISON: None TECHNIQUE: A single day SPECT protocol was utilized. Rest images were acquired following the intravenous injection of 10.6 millicuries of technetium 99m tetrofosmin. Pharmacologic stress images were acquired following the intravenous administration of 25.2 millicuries of technetium 99m tetrofosmin. FINDINGS: There are no defects of the stress-induced or fixed nature. The cardiac chamber size is normal. There are no wall motion abnormalities. The ejection fraction is calculated at 69 percent during stress. IMPRESSION: NO DEFECTS OF THE STRESS-INDUCED OR FIXED NATURE. ASSESSMENT: LOW-RISK Based on imaging criteria from ACC/AHA 2002 Guideline Update for the Management of Patients With Chronic Stable Angina Table 23. Noninvasive Risk Stratification.
[2017-09-07 17:55] VITALS: BP 141/66
--- NOTE | 2017-09-07 18:05 | ED ---
Joaquín Brewer Angela, scribed for Demetris Ladd MD on 09/07/17 at 0750 . Progress - Progress Note Progress Note: This pt was signed out by Dr. Luevano, pending disposition, awaiting lab results. Nuclear Cardiac Stress Test, as read by radiologist IMPRESSION: No defects of the stress-induced or fixed nature. Transthoracic Echocardiogram, as read by Dr. Yehuda Colvin Conclusions: Mild concentric left ventricular hypertrophy is observed. Left ventricular systolic function is at the lower limits of normal. Possible subtle anterolateral hypokinesis vs abnormal wall motion due to the LBBB. The estimated ejection fraction is 50-55%. There is a left ventricular septal wall motion abnormality observed, possibly due to the presence of a left bundle branch block. Abnormal left ventricular diastolic filling is observed, consistent with impaired relaxation. There is mild to moderate aortic regurgitation. There is mild mitral valve prolapse. There is a trace of mitral regurgitation. There is mild to moderate tricuspid regurgitation. The right ventricular systolic pressure is estimated at 32 mmHg. A trivial pericardial effusion is visualized. Dr. Ladd has reviewed these report. Course/Dx - Course Course Of Treatment: Ms. Collins was in no apparent distress during her visit here today. She is primarily complaining of shortness of breath with exertion. She was worked up in the hospital for a new onset left bundle branch block about a week ago and has had problems subsequently. She has been set up to have a nuclear stress test today at 11 AM. She had 3 troponins here in the emergency department today as well as an echocardiogram and a nuclear stress test. There is no evidence for any dangerous cardiac condition at this time. She was previously had a negative d-dimer and I don't think CTA is indicated. I will discharge her to follow-up with her PCP for further workup. - Diagnoses Provider Diagnoses: Dyspnea, Left bundle branch block - Provider Notifications Discussed Care Of Patient With: Yehuda Colvin Time Discussed With Above Provider: 08:38 Instructed by Provider To: Other - I discussed pt care with Dr. Colvin, linen room attendant. Discharge - Sign-Out/Discharge Documenting (check all that apply): Discharge/Admit/Transfer - Discharge, Receiving Sign-Out Receiving patient FROM: Jere Luevano - Discharge Plan Condition: Stable Disposition: HOME Patient Education Materials: Dyspnea (ED) Referrals: Liset Dewey MD [Primary Care Provider] - Additional Instructions: Please follow up with your primary care provider in 2-3 days. RETURN TO THE ED FOR ANY WORSENING SYMPTOMS. - Billing Disposition and Condition Condition: STABLE Disposition: Home The documentation as recorded by the Joaquín laurenao Angela accurately reflects the service I personally performed and the decisions made by me, Demetris Ladd MD.
== END 2017-09-07 17:56 | disposition home or self-care (01) ==
LOC: ED 05:02
DX: R07.89 Other chest pain (principal); K21.9 Gastro-esophageal reflux disease without esophagitis; R14.2 Eructation; R00.1 Bradycardia, unspecified; I44.7 Left bundle-branch block, unspecified; Z79.82 Long term (current) use of aspirin; Z82.49 Family history of ischemic heart disease and other diseases of the circulatory system; Z88.2 Allergy status to sulfonamides
CPT/HCPCS: 36415; 71045; 78452; 80053; 83605; 83880; 84484; 85025; 85610; 93005; 93017; 93306; 96374; 99283; A9270-GY; A9502; J2785